=== PATIENT | female | born 2000 | race Caucasian/White ===

== ENCOUNTER 2020-10-20 00:14 | Day surgery (SDC) | payer OTHER, SELFPAY ==
[2020-10-07 10:11] VITALS: BMI 35.9
[2020-10-20] VITALS (8 sets, daily range): BP systolic 114–127; BP diastolic 61–76; PULSE 51–90; RESP 12–28; TEMP 36.1–36.4; O2SAT 100
--- NOTE | 2020-10-20 07:21 | WPDHPUPDATE1 ---
History and Physical Update Update Date/Time: 10/20/20 07:21 History and Physical has been reviewed, including an updated exam of the patient. There are NO changes in the patient's condition. Risks, benefits, and alternatives have been discussed and questions answered. Patient agrees to proceed with procedure.
--- NOTE | 2020-10-20 07:22 | WPDHPUPDATE1 ---
History and Physical Update Update Date/Time: 10/20/20 07:22 History and Physical has been reviewed, including an updated exam of the patient. There are NO changes in the patient's condition. Risks, benefits, and alternatives have been discussed and questions answered. Patient agrees to proceed with procedure.
[2020-10-20] MEDS: LACTATED RINGERS 1,000 ML 30 ML IV CONT ×2 (07:48→10:15)
[2020-10-20] MEDS: ACETAMINOPHEN 500 MG TABLET 1000 MG PO (07:50)
[2020-10-20] MEDS: KETOROLAC 15 MG/ML VIAL (*BKC) IV PUSH (07:52)
[2020-10-20] MEDS: ONDANSETRON INJ 4 MG/2 ML VIAL IV PUSH (07:56)
--- NOTE | 2020-10-20 08:15 | WPDANESEPPF ---
Anes - Initial Pre Proc Eval Procedure: Operation Date: 10/20/20 09:30 Proposed Procedures p Diagnostic Laparoscopy - Leticia Hays MD Date/Time: 10/20/20 08:15 Surgeon: Leticia Hays MD Pre Op Diagnosis: pelvic and perineal pain Patient Data Age: 20 Gender: F Height: 1.65 m Weight: 98.1 kg Last Vital Signs Temp 97.5 F L 10/20/20 07:21 Pulse 90 10/20/20 07:21 Resp 18 10/20/20 07:21 BP 127/61 10/20/20 07:21 Pulse Ox 100 10/20/20 07:21 Allergies Allergy/AdvReac Type Severity Reaction Status Date / Time No Known Allergies Allergy Verified 10/20/20 08:04 Home Medications Medication Instructions Recorded Confirmed Type buspirone 15 mg PO BID 10/07/20 10/20/20 History lamotrigine 200 mg PO DAILY 10/07/20 10/20/20 History lisdexamfetamine [Vyvanse] 40 mg PO DAILY 10/07/20 10/20/20 History Patient hx anesthesia problems: none Family hx anesthesia problems: none [facility] Past Medical History Medical History (Updated 10/20/20 @ 07:25 by Cooper Morales MD) Anxiety Social History Social History Smoking status: Former smoker Additional smoking assessment comments: RARE USE Alcohol intake: current Drinks per week: 1 Substance use: never Living arrangements: with roommate(s) Anes - Eval Final PreProcedure Day of Procedure 10/20/20 08:15 Patient weight: obese Heart: regular rate and rhythm Lungs: clear to auscultation Airway: Mallampati scale class II Neurological: alert and oriented Last oral intake: >/= 8 hours ASA classification: II Emergent: no Anesthetic plan: proceed Anesthesia type and monitoring: general ETT and standard monitoring Informed Consent: The patient's anesthetic plan and its attendant risks and benefits were discussed with the patient/family/POA. Questions were solicited and answers provided to the satisfaction of the patient/family/POA.
[2020-10-20] MEDS: SCOPOLAMINE 1.5 MG PATCH TRANSDERM (08:22)
--- NOTE | 2020-10-20 10:19 | W.PM.PROC2 ---
Procedure Note - Detailed Date of Procedure 10/20/20 Pre-op Diagnosis pelvic and perineal pain Post-op Diagnosis same ( paratubal cyst, pelvic adhesions) Procedure Performed Diagnostic laparoscopy, adhesiolysis,, section paratubal cyst, resection/fulguration/ destruction of endometriosis Surgeon Leticia Hays MD Anesthesia general Indications Pelvic pain Findings left ovary adherent to left pelvic sidewall. Left paratubal cyst at the distal mesosalpinx adjacent to the tube. fine vesicular lesions throughout the posterior cul-de-sac concentrated in the area of the distal hemipelvis'. Description of Procedure The patient was taken to the operating room. She was prepped and draped in the dorsal lithotomy position after induction general anesthesia. A 5 mm incision was made with a scalpel on the abdominal skin in the left upper quadrant of the abdomen. A 5 mm trocar was inserted into the intra-abdominal cavity under direct visualization the scope. In the same fashion a 5 mm left lower quadrant trocar was inserted and a 5 mm infraumbilical trocar was inserted. A paratubal cyst was removed from the left mesial salpinx in the area of the left fallopian tube distally. This was done with sharp and blunt dissection using fulgurating cautery to prevent and stop bleeding. The left ovary was scarred down to the left hemipelvis. Using sharp dissection this was the peritoneum in the left hemipelvis was removed after dissecting out the location of the left ureter. This was done using sharp and blunt dissection using cautery. The identical procedure was performed on the right side pelvis as well. Interceed was placed over all 3 of the areas that were dissected. This was done after the pelvis was irrigated Very thoroughly. The pneumoperitoneum was reduced. The trocars were removed. Skin was closed with subcuticular 4 micro. The patient's incisions were covered with Dermabond. She was taken recovery room in stable condition. Sponge lap and needle counts were correct x2. Packing No Pathology yes Complications No immediate complications Condition stable Disposition same day
[2020-10-20] MEDS: fentaNYL CITRATE INJ (*CRX) 100 MCG/2 ML VIAL 25 MCG IV PUSH ×3 (10:53→11:15)
[2020-10-20] MEDS: oxyCODONE HCL (*CRX) 5 MG TAB IR PO (11:43)
== END 2020-10-20 12:27 | disposition home or self-care (01) ==
PROVIDERS: PCP Nurse Practitioner; Visit Provider Obstetrics & Gynecology
PROC: (CPT 49320; principal; 2020-10-20 09:30)
DX: R10.2 Pelvic and perineal pain (principal); N73.6 Female pelvic peritoneal adhesions (postinfective); N80.3 Endometriosis of pelvic peritoneum; N83.8 Other noninflammatory disorders of ovary, fallopian tube and broad ligament; F41.9 Anxiety disorder, unspecified; Z87.891 Personal history of nicotine dependence; E66.9 Obesity, unspecified; Z68.36 Body mass index [BMI] 36.0-36.9, adult
CPT/HCPCS: 58662; 88304; 88305; A9270; J1100; J1885; J2250; J2405; J2704; J3010; J7030; J7120